=== PATIENT | female | born 1995 | race Two or more races ===

== ENCOUNTER 2024-08-12 09:26 | Inpatient (IN) ==
[2024-08-12] MEDS ORDERED: D5 1/2 NS 1,000 ML 1,000 ML IV ONE (09:34)
[2024-08-12 09:41] VITALS: BMI 23.3
[2024-08-12 09:43] LABS: BILIRUBIN,URINE NEGATIVE (NEGATIVE); BLOOD/HEMOGLOBIN,URINE NEGATIVE (NEGATIVE); GLUCOSE, URINE NEGATIVE (NEGATIVE); KETONES,URINE NEGATIVE (NEGATIVE); LEUKOCYTE ESTERASE ,URINE NEGATIVE (NEGATIVE); NITRITES,URINE NEGATIVE (NEGATIVE); PROTEIN,URINE NEGATIVE (NEGATIVE); UROBILINOGEN,URINE NORMAL (NORMAL)
[2024-08-12 09:46] LABS: APPEARANCE,URINE CLEAR (CLEAR); COLOR,URINE YELLOW (YELLOW)
[2024-08-12] MEDS: D5 1/2 NS 1,000 ML 1,000 ML IV SCH ×2 (09:50→13:00)
[2024-08-12 09:54] LABS: AMNISURE ROM TEST NO MEMBRANES RUPTURE (NO RUPTURE)
[2024-08-12 10:17] LABS: MEAN CORPUSCULAR HGB CONC 33.2 g/dL (33.0-35.0)
[2024-08-12 10:20] LABS: BASOPHILS % (AUTO) 0.3 % (0.2-1.0); EOSINOPHILS % (AUTO) 0.5 % (0.9-2.9); HEMATOCRIT 32.3 % (36.0-47.0); HEMOGLOBIN 10.7 g/dL (12.0-16.0); LYMPHOCYTES # (AUTO) 1.2 X10^3/uL (1.3-2.9); LYMPHOCYTES % (AUTO) 14.8 % (21.0-51.0); MEAN CORPUSCULAR HEMOGLOBIN 26.9 pg (27.0-34.0); MEAN CORPUSCULAR VOLUME 81.1 fL (80.0-100.0); MEAN PLATELET VOLUME 10.5 fL (7.4-11.0); MONOCYTES # (AUTO) 0.5 x10^3/uL (0.3-0.8); MONOCYTES % (AUTO) 6.5 % (0.0-13.0); NEUTROPHILS # (AUTO) 6.3 x10^3/uL (2.2-4.8); NEUTROPHILS % (AUTO) 77.9 % (42.0-75.0); PLATELET COUNT 172 X10^3/uL (150.0-450.0); RED BLOOD COUNT 3.98 X10^6/uL (3.5-5.4); RED CELL DISTRIBUTION WIDTH 15.6 % (11.6-16.5); WHITE BLOOD COUNT 8.1 X10^3/uL (3.6-10.0)
[2024-08-12 10:30] LABS: ALANINE AMINOTRANSFERASE 20 Units/L (12-78); ALBUMIN 2.6 g/dL (3.4-5.0); ALKALINE PHOSPHATASE 159 Units/L (46-116); ASPARTATE AMINO TRANSFERASE 26 Units/L (15-37); BLOOD UREA NITROGEN 8 mg/dL (7-18); CALCIUM 8.5 mg/dL (8.5-10.1); CARBON DIOXIDE 24.5 mmol/L (21-32); CHLORIDE 100 mmol/L (98-107); COR CA(FOR HYPOALB) 9.6 mg/dL (8.5-10.1); GLUCOSE 103 mg/dL (65-99); POTASSIUM 3.6 mmol/L (3.5-5.1); SODIUM 134 mmol/L (136-145); TOTAL PROTEIN 6.8 g/dL (6.4-8.2); eGFR NON BLACK RACES > 60 (>60)
[2024-08-12 10:33] LABS: RAPID PLASMA REAGIN NONREACTIVE (NONREACTIVE)
[2024-08-12] MEDS ORDERED: NUBAIN INJ 20 MG AMP IVP PRN (10:36)
[2024-08-12] MEDS ORDERED: ZOFRAN INJ 4 MG VIAL IVP PRN (10:36)
[2024-08-12] MEDS: OXYTOCIN 20 UNIT/1,000 ML-NS 20 UNIT/1,000 ML PLAST..BAG IV PRN (12:22)
[2024-08-12] MEDS: PITOCIN ONE (12:59)
[2024-08-12] MEDS: BETADINE SOLN ONE (12:59)
[2024-08-12] MEDS: PITOCIN IVP ONE (13:25)
[2024-08-12] MEDS: XYLOCAINE-MPF 1% ONE (13:25)
[2024-08-12] MEDS ORDERED: AMBIEN PO PRN (14:15)
[2024-08-12] MEDS ORDERED: DERMOPLAST PAIN RELIEF SPRAY TOP PRN (14:15)
[2024-08-12] MEDS: OXYTOCIN 20 UNIT/1,000 ML-NS 20 UNIT/1,000 ML PLAST..BAG IV SCH (15:01)
[2024-08-12] MEDS: MOTRIN TAB 800 MG PO PRN (20:59)
[2024-08-13 05:22] LABS: HEMATOCRIT 28.1 % (36.0-47.0); HEMOGLOBIN 9.3 g/dL (12.0-16.0)
[2024-08-13] MEDS: PRENATAL PLUS PO SCH (08:03)
[2024-08-13 08:16] VITALS: RESP 18
[2024-08-13] MEDS: NS 100 ML IV 100 ML with VENOFER 400 MG IV NR (09:34)
[2024-08-13 10:10] VITALS: O2SAT 97
[2024-08-13 12:01] VITALS: BP 105/62; PULSE 67; TEMP 97
== END 2024-08-13 17:10 | disposition home or self-care (01) | DRG 807 ==
LOC: ER 09:26 → LD 10:36 → MED/SURG 14:29
PROVIDERS: ADMIT Obstetrics & Gynecology Obstetrics; ATTEND Obstetrics & Gynecology Obstetrics
DX: O70.1 Second degree perineal laceration during delivery; Z3A.38 38 weeks gestation of pregnancy; Z37.0 Single live birth; O26.893 Other specified pregnancy related conditions, third trimester